=== PATIENT | male | born 1990 | race African-American/Black ===

== ENCOUNTER 2016-07-18 01:12 | Emergency (ER) | payer SELFPAY ==
[~2016-07-18] VITALS: Ht 180.3 cm; Wt 73.0 kg
[2016-07-18] MEDS ORDERED: LORAZEPAM 2MG/ML CPJ IV STA (01:27)
[2016-07-18] MEDS ORDERED: DIPHENHYDRAMINE 50MG/ML VIAL IM STA (01:27)
[2016-07-18] MEDS ORDERED: HALOPERIDOL LACTATE 5MG/ML VIAL IM STA (01:27)
[2016-07-18 02:09] LABS: BASOPHILS % 0.6 % (0.0-2.0); HEMATOCRIT. 44.4 % (42.0-52.0); HEMOGLOBIN. 14.9 g/dL (14.0-18.0); LYMPHOCYTES % 28.2 % (20.0-50.0); MEAN CORPUSCULAR HGB CONC 33.5 g/dL (31.0-37.0); MEAN CORPUSCULAR VOLUME 80.6 fL (80.0-94.0); MEAN PLATELET VOLUME 7.4 fl (7.4-10.4); NEUTROPHILS % 54.2 % (40.0-76.0); PLATELET 370 x1000/uL (130-400); RED BLOOD CELL COUNT 5.51 mill/uL (4.7-6.1); RED CELL DISTRIBUTION WIDTH 14.6 % (11.6-14.6); WHITE BLOOD COUNT 6.6 x1000/uL (4.5-11.0)
[2016-07-18 02:16] LABS: INR 1.1; PROTHROMBIN TIME 11.7 sec
[2016-07-18 02:31] LABS: AMMONIA 26 uMol/L (<32)
[2016-07-18 02:32] LABS: ANION GAP 11; CALCIUM 8.7 mg/dL (8.5-10.1); CARBON DIOXIDE 26 mEq/L (21-32); CHLORIDE 106 mEq/L (98-107); UREA NITROGEN BLOOD 9 mg/dL (7-21); eGFR > 60 mL/min (>60)
[2016-07-18 02:33] LABS: ACETAMINOPHEN < 2 ug/mL (10-30); ALANINE AMINOTRANSFERASE 21 IU/L (13-61); ALBUMIN 3.8 g/dL (3.4-5.0); ETHANOL BLOOD < 10 mg/dL
[2016-07-18 03:14] LABS: INDEX HEMOLYSI 1 (1-3); INDEX ICTERIC 1 (1-4); INDEX LIPEMIC 1 (1-3)
[2016-07-18 06:45] VITALS: BP 132/71
[2016-07-18 14:50] LABS: CLARITY URINE CLOUDY (CLEAR); COLOR URINE YELLOW (YELLOW); GLUCOSE URINE NEGATIVE (NEGATIVE); KETONES URINE TRACE (NEGATIVE); LEUKOCYTE ESTERASE URINE TRACE (NEGATIVE); NITRITE URINE NEGATIVE (NEGATIVE); OCCULT BLOOD URINE 3+ (NEGATIVE); PH URINE 5.5 (4.5-8.0); PROTEIN URINE TRACE (NEGATIVE); SPECIFIC GRAVITY URINE 1.017 (1.005-1.030); UROBILINOGEN URINE 0.2 E.U./dL (0.2-1.0)
[2016-07-18 15:11] LABS: BACTERIA URINE TRACE; RBC URINE 50-100 /hpf (0-2); SQUAMOUS EPITHELIAL CELL URINE RARE /lpf (RARE/1+); WBC URINE 0-2 /hpf (0-2)
[2016-07-18 15:17] LABS: *AMPHETAMINES SCREEN URINE NEGATIVE (NEGATIVE); *BARBITURATES SCREEN URINE NEGATIVE (NEGATIVE); *BENZODIAZEPINES SCREEN URINE NEGATIVE (NEGATIVE); *COCAINE SCREEN URINE NEGATIVE (NEGATIVE); CANNABINOID URINE SCREEN PRESUMTIVE POSITIVE (NEGATIVE); ECSTASY MDMA SCREEN URINE NEGATIVE (NEGATIVE); METHADONE URINE SCREEN NEGATIVE (NEGATIVE); OPIATES URINE SCREEN NEGATIVE (NEGATIVE); PHENCYCLIDINE URINE SCREEN NEGATIVE (NEGATIVE)
== END 2016-07-18 16:27 | disposition home or self-care (01) ==
LOC: ER 01:14
DX: R41.82 Altered mental status, unspecified (principal); F31.9 Bipolar disorder, unspecified; R94.6 Abnormal results of thyroid function studies
CPT/HCPCS: 36415; 70450; 80053; 80305; 80329; 81001; 82140; 83605; 84443; 85025; 85610; 93005; 96372; 96374; 99285; G0482; J1200; J1630; J2060; 80307